=== PATIENT | female | born 1965 | race African-American/Black ===

== ENCOUNTER 2024-07-23 00:26 | Emergency (ER) | payer BC ==
[2024-07-23] MEDS ORDERED: KETOROLAC 10 MG TAB ONE (01:08)
[2024-07-23] MEDS ORDERED: predniSONE 20 MG TAB ONE (01:09)
[2024-07-23] MEDS ORDERED: methocarbamoL 750 MG TAB ONE (01:09)
[2024-07-23] MEDS ORDERED: ACETAMINOPHEN 500 MG TAB ONE (01:09)
[2024-07-23 02:00] LABS: Absolute Eosinophils 0.3 K/uL (0-0.5); Absolute Lymphocytes (CBC) 2.1 K/uL (0.7-4.9); Absolute Monocytes 0.3 K/uL (0.1-1.3); Absolute Neutrophil 2.3 K/uL (1.8-8.0); Basophils % 0.8 % (0-1.3); Eosinophils % 5.6 % (0-4.4); Hematocrit 36.4 % (36.0-45.0); Hemoglobin 12.2 g/dL (12.0-15.0); Lymphocytes % 41.6 % (15.3-44.8); MCHC 33.6 g/dL (32.0-36.0); MCV 92.2 fL (80-100); MPV 7.7 fL (7.6-11.3); Monocytes % 6.6 % (3.3-12.3); Neutrophils % 45.4 % (41.7-73.7); Nucleated Red Blood Cells % 0.1 % (0-0); Platelets 363 thou/uL (152-406); RBC Red Blood Cell Count 3.95 M/uL (3.86-4.86); Red Cell Distribution Width 12.4 % (12.1-15.2)
[2024-07-23 02:11] LABS: Albumin 4.1 g/dL (3.4-5.0); Anion Gap 7.3 mEq/L (5.0-15.0); Bilirubin Total 0.3 mg/dL (0.2-1.0); Potassium 3.3 mEq/L (3.5-5.1); Protein, Total 8.1 g/dL (6.4-8.2)
--- NOTE | 2024-07-23 03:04 | ER ---
Nurse's Notes [facility] Name: Junie Van Age: 59 yrs Sex: Female : 1965 Arrival Date: 07/23/2024 Time: 00:26 Bed DX5 Private MD: Pipo Naylor Diagnosis: Right shoulder tendinitis, right shoulder degenerative joint disease, right glenohumeral degenerative joint disease, right thumb arthritis Presentation: 07/23 00:41 Chief complaint: Patient states: throbbing right arm pain and numbness off and on all vc1 week. Coronavirus screen: Client denies travel out of the [place] in the last 14 days. At this time, the client does not indicate any symptoms associated with coronavirus-19. Ebola Screen: Patient negative for fever greater than or equal to 101.5 degrees Fahrenheit, and additional compatible Ebola Virus Disease symptoms Patient denies exposure to infectious person. Patient denies travel to an Ebola-affected area in the 21 days before illness onset. No symptoms or risks identified at this time. Initial Sepsis Screen: Does the patient meet any 2 criteria? No. Patient's initial sepsis screen is negative. Does the patient have a suspected source of infection? No. Patient's initial sepsis screen is negative. Risk Assessment: Do you want to hurt yourself or someone else? Patient reports no desire to harm self or others. Onset of symptoms is unknown. 00:41 Method Of Arrival: Ambulatory vc1 00:41 Acuity: BENSON 3 vc1 Triage Assessment: 03:13 General: Appears in no apparent distress. uncomfortable, well groomed, well developed, vc1 well nourished, Behavior is calm, cooperative, appropriate for age. Pain: Complains of pain in right thumb and right arm Pain does not radiate. Pain currently is 10 out of 10 on a pain scale. Quality of pain is described as shooting, Pain began 1 week ago Noted to be resistant to movement. EENT: No deficits noted. No signs and/or symptoms were reported regarding the EENT system. Neuro: Level of Consciousness is awake, alert, obeys commands, Oriented to person, place, time, situation, Appropriate for age. Cardiovascular: Heart tones S1 S2 present Capillary refill < 3 seconds Patient's skin is warm and dry. Respiratory: Airway is patent Respiratory effort is even, unlabored, Respiratory pattern is regular, symmetrical, Breath sounds are clear bilaterally. GI: No deficits noted. No signs and/or symptoms were reported involving the gastrointestinal system. : No deficits noted. No signs and/or symptoms were reported regarding the genitourinary system. Derm: Skin is intact, is healthy with good turgor, Skin is dry, Skin is normal, Skin temperature is warm. Musculoskeletal: Circulation, motion, and sensation intact. Range of motion: limited in right shoulder. Historical: - Allergies: 00:43 No Known Allergies; vc1 - Home Meds: 00:43 pravastatin 40 mg oral tablet [Active]; losartan 100 mg oral tablet [Active]; vc1 amlodipine 10 mg tablet [Active]; metformin 500 mg Oral tablet 2 times per day [Active]; aspirin 81 mg Oral tablet,chewable [Active]; womans multivitamin [Active]; Potassium Chloride Oral [Active]; - PMHx: 00:43 Hypertensive disorder; Hypercholesterolemia; Diabetes mellitus; vc1 - PSHx: 00:43 Total abdominal hysterectomy; vc1 - Immunization history:: Client reports receiving the 2nd dose of the Covid vaccine, Flu vaccine is not up to date. - Infectious Disease History:: Denies. - Social history:: Smoking status: Patient denies any tobacco usage or history of. - Family history:: not pertinent. Screenin:47 [facility] ED Fall Risk Assessment (Adult) History of falling in the last 3 months, vc1 including since admission No falls in past 3 months (0 pts) Confusion or Disorientation No (0 pts) Intoxicated or Sedated No (0 pts) Impaired Gait No (0 pts) Mobility Assist Device Used No (0 pt) Altered Elimination No (0 pt) Score/Fall Risk Level 0 - 2 = Low Risk Oriented to surroundings, Maintained a safe environment, Educated pt \T\ family on fall prevention, incl call for assistance when getting out of bed. Abuse screen: Denies threats or abuse. Nutritional screening: No deficits noted. Tuberculosis screening: No symptoms or risk factors identified. Assessment: 01:27 Pain: Complains of pain in right arm. kl Vital Signs: 00:41 Weight 66.68 kg; Height 5 ft. 5 in. ; Pain 10/10; vc1 00:48 BP 130 / 73; Pulse 77; Resp 14; Pulse Ox 97% ; vc1 00:41 Body Mass Index 24.46 (66.68 kg, 165.1 cm) vc1 00:41 Pain Scale: Adult vc1 Danielle Coma Score: 21:02 Eye Response: spontaneous(4). Motor Response: obeys commands(6). Verbal Response: sp4 oriented(5). Total: 15. ED Course: 00:32 Patient arrived in ED. gm2 00:32 Pipo Naylor MD is Private Physician. gm2 00:38 Brendon Khan MD is Attending Physician. sp4 00:43 Triage completed. vc1 00:47 Arm band placed on left wrist. Patient placed. vc1 00:49 Patient has correct armband on for positive identification. Provided Education on: plan vc1 of care. 01:19 Shoulder Right (2 View) XRAY In Process Unspecified. EDMS 01:19 Hand Right 3 View XRAY In Process Unspecified. EDMS 01:26 CBC with Diff Sent. kl 01:26 CMP Sent. kl 01:26 No provider procedures requiring assistance completed. Inserted saline lock: 22 gauge kl in left antecubital area, using aseptic technique. Blood collected. Flushed with 10 mL NS. 03:03 Pipo Naylor MD is Referral Physician. sp4 03:13 Es Anguiano, RN is Primary Nurse. vc1 03:20 Patient did not have IV access during this emergency room visit. vc1 Administered Medications: 01:26 Drug: predniSONE PO 60 mg PO once Route: PO; kl 02:06 Follow up: Response: No adverse reaction; Pain is decreased vc1 01:26 Drug: Methocarbamol PO 1500 mg PO once Route: PO; kl 02:06 Follow up: Response: No adverse reaction; Pain is decreased vc1 01:26 Drug: Ketorolac PO 10 mg PO once Route: PO; kl 02:06 Follow up: Response: No adverse reaction; Pain is decreased vc1 01:26 Drug: Acetaminophen PO 1000 mg PO once Route: PO; kl 03:21 Follow up: Response: No adverse reaction vc1 Medication: 00:47 VIS not applicable for this client. vc1 Outcome: 03:03 Discharge ordered by . sp4 03:18 Discharged to home ambulatory, vc1 03:18 Condition: stable 03:18 Discharge instructions given to patient, Instructed on discharge instructions, follow up and referral plans. no drinking with medication, no driving heavy equipment, medication usage, Demonstrated understanding of instructions, follow-up care, medications, Prescriptions given X 3, 03:32 Patient left the ED. vc1 Signatures: Dispatcher [employer] EDRamila Feliz RN RN kl Calcote, Vanessa, RN RN vc1 Brendon Khan MD MD sp4 Anastacia Garcia 2
--- NOTE | 2024-07-23 03:04 | EDPHYS ---
Physician Documentation [facility] Name: Junie Van Age: 59 yrs Sex: Female : 1965 Arrival Date: 07/23/2024 Time: 00:26 Bed DX5 Private MD: Pipo Naylor ED Physician Brendon Khan HPI: 07/23 00:38 This 59 yrs old Black Female presents to ER via Unassigned with complaints of Arm Pain. sp4 21:02 59-year-old female presents with arm pain. Patient states that for the past several sp4 days she has developed right shoulder pain and the right thumb pain associated with repetitive movements at work. 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 Patient states pain is moderate associated with the right thumb movement right shoulder movement. There is no swelling no redness. There is no numbness. Historical: - Allergies: 00:43 No Known Allergies; vc1 - Home Meds: 00:43 pravastatin 40 mg oral tablet [Active]; losartan 100 mg oral tablet [Active]; vc1 amlodipine 10 mg tablet [Active]; metformin 500 mg Oral tablet 2 times per day [Active]; aspirin 81 mg Oral tablet,chewable [Active]; womans multivitamin [Active]; Potassium Chloride Oral [Active]; - PMHx: 00:43 Hypertensive disorder; Hypercholesterolemia; Diabetes mellitus; vc1 - PSHx: 00:43 Total abdominal hysterectomy; vc1 - Immunization history:: Client reports receiving the 2nd dose of the Covid vaccine, Flu vaccine is not up to date. - Infectious Disease History:: Denies. - Social history:: Smoking status: Patient denies any tobacco usage or history of. - Family history:: not pertinent. ROS: 21:02 Constitutional: Negative for fever, chills, and weight loss, MS/Extremity: Negative for sp4 injury and deformity, positive for right shoulder pain positive right thumb pain positive pain with repetitive movements. 21:02 All other systems are negative, Exam: 21:02 Constitutional: This is a well developed, well nourished patient who is awake, alert, sp4 and in no acute distress. Head/Face: Normocephalic, atraumatic. Eyes: Pupils equal round and reactive to light, extra-ocular motions intact. Lids and lashes normal. Conjunctiva and sclera are not injected. Cornea within normal limits. Periorbital areas with no swelling, redness, or edema. ENT: Nares patent. No nasal discharge, no septal abnormalities noted. Tympanic membranes are normal and external auditory canals are clear. Oropharynx with no redness, swelling, or masses, exudates, or evidence of obstruction, uvula midline. Mucous membranes moist. Neck: Trachea midline, no thyromegaly or masses palpated, and no cervical lymphadenopathy. Supple, full range of motion without nuchal rigidity, or vertebral point tenderness. Chest/axilla: Normal chest wall appearance and motion. Nontender with no deformity. No lesions are appreciated. Cardiovascular: Regular rate and rhythm with a normal S1 and S2. No gallops, murmurs, or rubs. Normal PMI, no JVD. No pulse deficits. Respiratory: Lungs have equal breath sounds bilaterally, clear to auscultation and percussion. No rales, rhonchi or wheezes noted. No increased work of breathing, no retractions or nasal flaring. Abdomen/GI: Soft, with normal bowel sounds. No distension or tympany. No guarding or rebound. No evidence of tenderness throughout. Back: No spinal tenderness. No costovertebral tenderness. Skin: Warm, dry with normal turgor. Normal color with no rashes, no lesions, and no evidence of cellulitis. MS/ Extremity: Pulses equal, no cyanosis. Neurovascular intact. Full, normal range of motion. Neuro: Awake and alert, GCS 15, oriented to person, place, time, and situation. Cranial nerves II-XII grossly intact. Motor strength 5/5 in all extremities. Sensory grossly intact. Psych: Awake, alert, with orientation to person, place and time. Behavior, mood, and affect are within normal limits Vital Signs: 00:41 Weight 66.68 kg; Height 5 ft. 5 in. ; Pain 10/10; vc1 00:48 BP 130 / 73; Pulse 77; Resp 14; Pulse Ox 97% ; vc1 00:41 Body Mass Index 24.46 (66.68 kg, 165.1 cm) vc1 00:41 Pain Scale: Adult vc1 Lutz Coma Score: 21:02 Eye Response: spontaneous(4). Motor Response: obeys commands(6). Verbal Response: sp4 oriented(5). Total: 15. Procedures: 21:02 Splinting: Splint applied to anterior aspect of right shoulder and right bicep using sp4 sling, wrist splint, applied by nurse. Examined by me, post splint application: neurovascular intact, 2+ distal pulses palpable, brisk capillary refill noted, Patient tolerated well, Right arm sling in the right wrist splint with thumb support were applied. Advised no repetitive movements for the next 2 weeks.. MDM: 02:15 Medical Screening Exam initiated sp4 02:57 ED course: EXAM DESCRIPTION: Shoulder Right 2+ Views RadLex: XR SHOULDER 2 OR MORE sp4 VIEWS RIGHT CLINICAL HISTORY: 59 years Female, shoulder pain COMPARISON: None. FINDINGS: 2 views of the right shoulder. Osseous demineralization. No definite acute fracture or dislocation. Spurring involving the medial and lateral humeral head small subchondral cystic change also demonstrated laterally and centrally in the humeral head. Mild degenerative changes at the acromioclavicular joint. Soft tissues are unremarkable. IMPRESSION: 1. Osseous demineralization without definite acute fracture identified. 2. Degenerative changes of the glenohumeral and acromioclavicular joints. . ED course: EXAM: XR Right Hand Complete, 3 or More Views CLINICAL HISTORY: The patient is 59 years old and is Female; R thumb pain TECHNIQUE: Frontal, lateral and oblique views of the right hand. COMPARISON: No relevant prior studies available. FINDINGS: BONES/JOINTS: Minimal interphalangeal joint space narrowing is present specifically involving the distal interphalangeal joints. No acute fracture. No dislocation. SOFT TISSUES: Unremarkable. No radiopaque foreign body. IMPRESSION: Negative right hand radiographs. . 21:02 Differential diagnosis: contusion, abrasion, tendonitis, Acute tendinitis, acute sp4 bursitis, degenerative arthritis. Data reviewed: vital signs, nurses notes, lab test result(s), CBC, electrolytes, radiologic studies, plain films. Consideration of Admission/Observation Escalation of care including admission/observation considered. ED course: Patient advised to take 2 weeks of work and no repetitive movements for the next 2 days. Advised to take prednisone. Naprosyn as needed. Additionally follow-up with orthopedist for persistent or worsening pain. Patient was given a sling to the right arm and also right wrist Velcro splint with a thumb support. 07/23 00:55 Order name: CBC with Diff; Complete Time: 02:55 sp4 07/23 00:55 Order name: CMP; Complete Time: 02:55 sp4 07/23 00:56 Order name: CK; Complete Time: 02:55 sp4 07/23 00:56 Order name: Shoulder Right (2 View) XRAY sp4 07/23 00:56 Order name: Hand Right 3 View XRAY sp4 07/23 00:55 Order name: IV Saline Lock; Complete Time: 01:26 sp4 07/23 00:55 Order name: Labs collected and sent; Complete Time: 01: sp4 07/23 03:30 Order name: Sling: Right arm sling; Complete Time: 03:32 sp4 07/23 03:31 Order name: Splint - Wrist: Right wrist velcro splint; Complete Time: 03:32 sp4 Administered Medications: 01:26 Drug: predniSONE PO 60 mg PO once Route: PO; kl 02:06 Follow up: Response: No adverse reaction; Pain is decreased vc1 01:26 Drug: Methocarbamol PO 1500 mg PO once Route: PO; kl 02:06 Follow up: Response: No adverse reaction; Pain is decreased vc1 01:26 Drug: Ketorolac PO 10 mg PO once Route: PO; kl 02:06 Follow up: Response: No adverse reaction; Pain is decreased vc1 01:26 Drug: Acetaminophen PO 1000 mg PO once Route: PO; kl 03:21 Follow up: Response: No adverse reaction vc1 Disposition: 21:07 Chart complete. sp4 Disposition Summary: 07/23/24 03:03 Discharge Ordered Notes: Location: Home sp4 Problem: new sp4 Symptoms: have improved sp4 Condition: Stable sp4 Diagnosis - Right shoulder tendinitis, right shoulder degenerative joint disease, right sp4 glenohumeral degenerative joint disease, right thumb arthritis Followup: sp4 - With: Pipo Naylor MD - When: 7 - 10 days - Reason: Recheck today's complaints Discharge Instructions: - Discharge Summary Sheet sp4 - Tendinitis sp4 Forms: - Work release form sp4 - Patient Portal Instructions sp4 Prescriptions: - naproxen 500 mg Oral tablet - take 1 tablet ORAL route 2 times per day PRN pain; 50 tablet; Refills: 0, sp4 Product Selection Permitted - Prednisone 20 mg Oral Tablet - take 2 tablets ORAL route once daily for 5 days; 10 tablet; Refills: 0, Product sp4 Selection Permitted - methocarbamol 750 mg Oral tablet - take 2 tablets ORAL route every 8 hours for 21 days PRN muscular pain; 60 sp4 tablet; Refills: 0, Product Selection Permitted Signatures: Dispatcher [employer] Ramila Hooper RN RN Es Brandt RN RN vc1 Brendon Khna MD MD sp4
[2024-07-23 03:44] VITALS: BP 130/73; O2SAT 97
--- NOTE | 2024-07-23 05:47 | RAD REPORT ---
EXAM DESCRIPTION: Shoulder Right 2+ Views RadLex: XR SHOULDER 2 OR MORE VIEWS RIGHT CLINICAL HISTORY: 59 years Female, shoulder pain COMPARISON: None. FINDINGS: 2 views of the right shoulder. Osseous demineralization. No definite acute fracture or dislocation. S purring involving the medial and lateral humeral head small subchondral cystic change also demonstrated laterally and centrally in the humeral head. Mild degenerative changes at the acromiocla vicular joint. Soft tissues are unremarkable. IMPRESSION: 1. Osseous demineralization without definite acute fracture identified. 2. Degenerative changes of the glenohumeral and acromioclavicular joints. Electronically signed by: Linda Stewart MD 07/23/2024 01:58 AM CDT Due to temporary technical issues with the PACS/[employer] reporting system, reports are being ashley d by the in-house radiologist without review as a courtesy to ensure prompt reporting the interpreting radiologist is fully responsible for the content of the report. Transcribed Date/Time: 07/23/2024 5:46 AM
--- NOTE | 2024-07-23 05:47 | RAD REPORT ---
EXAM: XR Right Hand Complete, 3 or More Views CLINICAL HISTORY: The patient is 59 years old and is Female; R thumb pain TECHNIQUE: Frontal, lateral and oblique views of the right hand. COMPARISON: No relevant prior studies available. FINDINGS: BONES/JOINTS: Minimal interphalangeal joint space narrowing is present specifically involving the d istal interphalangeal joints. No acute fracture. No dislocation. SOFT TISSUES: Unremarkable. No radiopaque foreign body. IMPRESSION: Negative right hand radiographs. Electronically signed by: Donna Guerra MD 07/23/2024 01:58 AM CDT RP Due to temporary technical issues with the PACS/[employer] reporting system, reports are being ashley d by the in-house radiologist without review as a courtesy to ensure prompt reporting the interpreting radiologist is fully responsible for the content of the report. Transcribed Date/Time: 07/23/2024 5:47 AM
== END 2024-07-23 03:32 | disposition home or self-care (01) ==
LOC: ER 00:26
DX: M67.813 Other specified disorders of tendon, right shoulder (principal); M19.011 Primary osteoarthritis, right shoulder; M19.041 Primary osteoarthritis, right hand; Z79.82 Long term (current) use of aspirin
CPT/HCPCS: 85025; 36415; 82550; 80053; 73130; 73030; 99284; J7512